=== PATIENT | female | born 1975 | race Two or more races ===

== ENCOUNTER 2024-01-25 08:29 | Emergency (ER) | payer MEDICAID, OTHER ==
[~2024-01-25] VITALS: Ht 154.9 cm; Wt 104.3 kg
[2024-01-25 08:39] VITALS: TEMP 98.6
[2024-01-25] MEDS ORDERED: NAPR-1009 PO (08:46)
[2024-01-25] MEDS ORDERED: DIAZ2TAB PO (08:46)
[2024-01-25] MEDS ORDERED: KETOROLAC TROMETHAMINE INJ 30 MG/ML VIAL ONE (08:56)
[2024-01-25] MEDS: KETOROLAC TROMETHAMINE INJ 60 MG/2 ML VIAL IM ONE (08:59)
[2024-01-25 09:00] VITALS: BP 162/71
[2024-01-25 09:15] VITALS: O2SAT 99
== END 2024-01-25 09:23 | disposition home or self-care (01) ==
LOC: ER 08:42
DX: M54.50 Low back pain, unspecified (principal); I10 Essential (primary) hypertension; E11.9 Type 2 diabetes mellitus without complications; Z88.8 Allergy status to other drugs, medicaments and biological substances
CPT/HCPCS: 99283; 96372; J1885

== ENCOUNTER 2024-05-04 19:55 | Emergency (ER) | payer OTHER ==
[~2024-05-04] VITALS: Ht 160 cm; Wt 113.4 kg
[~2024-05-04 19:55] MED LIST: DIAZ2TAB PO; NAPR-1009 PO
[2024-05-04 20:19] VITALS: BP 171/94; TEMP 98.8
[2024-05-04] MEDS ORDERED: KETOROLAC TROMETHAMINE 15 MG/ML VIAL ONE (21:01)
[2024-05-04] MEDS ORDERED: CYCLOBENZAPRINE 10 MG TABLET ONE (21:02)
[2024-05-04] MEDS ORDERED: dexAMETHasone 1 MG TABLET ONE (21:02)
[2024-05-04] MEDS: dexAMETHasone 1 MG TABLET PO ONE (21:07)
[2024-05-04] MEDS: CYCLOBENZAPRINE 10 MG TABLET PO ONE (21:07)
[2024-05-04] MEDS: KETOROLAC TROMETHAMINE 15 MG/ML VIAL IM ONE (21:09)
[2024-05-04 21:37] VITALS: O2SAT 99
[2024-05-04] MEDS ORDERED: IBUP-2314 PO (21:37)
[2024-05-04] MEDS ORDERED: METH4TAB17 PO (21:41)
[2024-05-04] MEDS ORDERED: CYCL10TA9 PO (21:41)
== END 2024-05-04 21:49 | disposition home or self-care (01) ==
LOC: ER 20:22
DX: M54.31 Sciatica, right side (principal); M54.9 Dorsalgia, unspecified; I10 Essential (primary) hypertension; E11.9 Type 2 diabetes mellitus without complications; Z79.1 Long term (current) use of non-steroidal anti-inflammatories (NSAID); Z79.899 Other long term (current) drug therapy; Z88.5 Allergy status to narcotic agent
CPT/HCPCS: 99283; 96372; J8540; J1885